=== PATIENT | male | born 1990 | race African-American/Black ===

== ENCOUNTER 2017-02-18 11:27 | Emergency (ER) | payer MEDICAID, OTHER ==
[2017-02-18] MEDS ORDERED: Albuterol 2.5 MG/3 ML NEB.SOL* (0.083%) INH ONE ×2 (12:27→13:14)
--- NOTE | 2017-02-18 12:45 | ED ---
Asthma - HPI Summary HPI Summary: Patient presents with wheezing. He has asthma and has had an URI for the last four days. He does not have a regular provider and does not have an inhaler. He denies CP, fever, chills, sore throat, or SEO. He has nasal and chest congestion with a cough. - History of Current Complaint Chief Complaint: EDAsthma Stated Complaint: ASTHMA ISSUE Time Seen by Provider: 02/18/17 11:47 Hx Obtained From: Patient Onset/Duration: Gradual Onset Timing: Constant Initial Severity: Moderate Current Severity: Moderate Pain Intensity: 0 Location/Character: Cough (Nonproductive) Alleviating Symptoms: Nothing Associated Signs and Symptoms: Positive: Shortness of Breath - Allergy/Home Medications Allergies/Adverse Reactions: Allergies Allergy/AdvReac Type Severity Reaction Status Date / Time Environmental Allergy Congestion Uncoded 03/03/16 10:55 PMH/Surg Hx/FS Hx/Imm Hx Endocrine/Hematology History: Denies: Hx Diabetes, Hx Thyroid Disease Cardiovascular History: Denies: Hx Hypertension Respiratory History: Reports: Hx Asthma Denies: Hx Chronic Obstructive Pulmonary Disease (COPD) GI History: Denies: Hx Ulcer - Immunization History Date of Tetanus Vaccine: UTD Date of Influenza Vaccine: no Infectious Disease History: No Infectious Disease History: Denies: Hx Hepatitis, Hx Human Immunodeficiency Virus (HIV), History Other Infectious Disease, Traveled Outside the [place] in Last 30 Days - Family History Known Family History: Positive: None - Social History Occupation: Employed Full-time Lives: With Family Alcohol Use: Occasionally Substance Use Type: Reports: None Smoking Status (MU): Former Smoker Type: Cigarettes Amount Used/How Often: 2 cigs per day Review of Systems Negative: Fever, Chills Positive: Nasal Discharge. Negative: Sore Throat Negative: Chest Pain Positive: Shortness Of Breath, Cough All Other Systems Reviewed And Are Negative: Yes Physical Exam Triage Information Reviewed: Yes Vital Signs On Initial Exam: Initial Vitals Temp Pulse Resp BP Pulse Ox 97.4 F 95 16 131/75 100 02/18/17 11:29 02/18/17 11:29 02/18/17 11:29 02/18/17 11:29 02/18/17 11:29 Vital Signs Reviewed: Yes Appearance: Positive: Well-Appearing, No Pain Distress, Well-Nourished Skin: Positive: Warm, Skin Color Reflects Adequate Perfusion, Dry, Soft Head/Face: Positive: Normal Head/Face Inspection Eyes: Positive: EOMI, STEFAN, Conjunctiva Clear ENT: Positive: Hearing grossly normal, Pharynx normal Neck: Positive: Supple, Nontender, No Lymphadenopathy Respiratory/Lung Sounds: Positive: Breath Sounds Present, Wheezes - upper and lower bilaterally. Negative: Decreased Breath Sounds, Subcutaneous Emphysema, Stridor, Tracheal Deviation, Unable to speak in full sentences, Fatigue Cardiovascular: Positive: RRR Musculoskeletal: Negative: Edema Left, Edema Right Neurological: Positive: Sensory/Motor Intact, Alert, Oriented to Person Place, Time, NV Bundle Intact Distally Psychiatric: Positive: Affect/Mood Appropriate AVPU Assessment: Alert - Aileen Coma Scale Coma Scale Total: 15 Diagnostics - Vital Signs Vital Signs Temp Pulse Resp BP Pulse Ox 02/18/17 11:44 97.4 F 95 16 131/75 100 02/18/17 11:29 97.4 F 95 16 131/75 100 - Laboratory Lab Statement: Any lab studies that have been ordered have been reviewed, and results considered in the medical decision making process. Re-Evaluation - Re-Evaluation Second Eval Re-Evaluation Time: 14:05 Change: Improved - continued improvement with second albuterol treatment Asthma Course/Dx - Diagnoses Differential Diagnosis/HQI/PQRI: Positive: Acute Asthma, Bronchitis, COPD Excerbation, Pneumonia, Reactive Airway Disease Provider Diagnoses: Asthma with acute exacerbation in adult Discharge - Discharge Plan Condition: Stable Disposition: HOME Prescriptions: Albuterol HFA INHALER* [Ventolin HFA Inhaler*] 2 puff INH Q4H PRN #1 mdi PRN Reason: wheezing Patient Education Materials: Wheezing (ED) Referrals: Luis Miguel Dave MD [Primary Care Provider] - Additional Instructions: Please use the inhaler to help decrease your symptoms. Use over the counter medication to help with your other symptoms. Call the number provided to establish care with a regular provider. Return to the emergency department if symptoms worsen.
[2017-02-18] MEDS ORDERED: Albuterol HFA INHALER* 8 gm MDI INH PRN (14:09)
[2017-02-18] MEDS ORDERED: Albuterol HFA INHALER* 8 gm MDI INH ONE (14:26)
[2017-02-18 14:32] VITALS: BP 150/67
== END 2017-02-18 14:35 | disposition home or self-care (01) ==
LOC: ED 11:27
DX: J45.901 Unspecified asthma with (acute) exacerbation (principal); R06.02 Shortness of breath; R05 Cough
CPT/HCPCS: 94640; 99282; A9270-GY

== ENCOUNTER 2019-03-20 19:34 | Emergency (ER) | payer OTHER ==
--- NOTE | 2019-03-20 19:39 | UC ---
Hand/Wrist HPI - HPI Summary HPI Summary: 28 yo male presents with left wrist injury. He tells me that about 30min [employer] he was chasing his young son when he tripped and landed on his left wrist. Has some abrasion to his wrist and pain. Pain worse with movement. Has not taken anything OTC for his pain. He is right handed. Denies numbness or tingling. States last tetanus was 2-3 years ago. - History Of Current Complaint Stated Complaint: LEFT WRIST INJURY Time Seen by Provider: 03/20/19 19:39 Hx Obtained From: Patient Onset/Duration: Sudden Onset Severity Initially: Moderate Severity Currently: Severe Pain Intensity: 9 Pain Scale Used: 0-10 Numeric - Allergies/Home Medications Allergies/Adverse Reactions: Allergies Allergy/AdvReac Type Severity Reaction Status Date / Time Environmental Allergy Congestion Uncoded 03/03/16 10:55 PMH/Surg Hx/FS Hx/Imm Hx Respiratory History: Asthma - Surgical History Surgical History: None - Family History Known Family History: Positive: None - Social History Lives: With Family Alcohol Use: Occasionally Substance Use Type: None Smoking Status (MU): Current Some Day Smoker Type: Cigarettes Amount Used/How Often: 2 cigs per day Review of Systems All Other Systems Reviewed And Are Negative: Yes Constitutional: Positive: Negative Skin: Positive: Other - Abrasions left wrist/arm Respiratory: Positive: Negative Cardiovascular: Positive: Negative Neurovascular: Positive: Negative Musculoskeletal: Positive: Other: - Left wrist pain Neurological: Positive: Negative Psychological: Positive: Negative Physical Exam - Summary Physical Exam Summary: GENERAL: NAD. WDWN. No pain distress. SKIN: Three superficial abrasions. One on the dorsal mid forearm. One on the dorsal left wrist. One on the ulnar aspect of the left hand. Dried blood. Clean wounds. CHEST: No accessory muscle use. Breathing comfortably and in no distress. CV: Pulses intact radial and ulnar. Cap refill <2seconds MSK: LEFT WRIST: Moderate TTP about entire wrist with mild edema. Mild TTP at mid dorsal forearm with dorsal bony angulation near mid radius. Decreased flexion due to pain. Unable to supinate due to pain. NTTP elbow. NEURO: Alert. Sensations intact hand and all fingers. PSYCH: Age appropriate behavior. Triage Information Reviewed: Yes Vital Signs: Vital Signs: Temp Pulse Resp BP Pulse Ox 99.7 F 96 18 128/75 97 03/20/19 19:48 03/20/19 19:48 03/20/19 19:48 03/20/19 19:48 03/20/19 19:48 Vital Signs Reviewed: Yes Hand/Wrist Course/Dx - Course Course Of Treatment: The wounds on his arm were irrigated with NS. XR: No radiologist reading after 1800, therefore wet read by myself is mid shaft radius fracture with dorsal and ulnar displacement. Call to Dr. Mckeon carbonation equipment tender Orthopedist at 1999. Return call around 2014 - she viewed the films and agrees with above. I discussed the case with her. She advises that this fracture will likely not be able to be reduced and will likely need surgery tonight and she is not comfortable performing the required operation - recommended pt be transferred to [facility] for further treatment and to obtain elbow XRs. XR elbow: Wet read as negative at the elbow. Pt drove here. Was given 800mg ibuprofen for his discomfort. Discussed the above with pt and he is agreeable to transfer. Spoke with [facility] transfer center Vee RN and pt to report to [facility] ED. Medicaid cab service was able to be contacted and will transport the pt to [facility] ED. He was placed in a sling for comfort and provided with a CD copy of his films from today. Left in stable condition via medicaid cab. - Differential Dx/Diagnosis Provider Diagnosis: Displaced fracture of shaft of radius Discharge - Sign-Out/Discharge Documenting (check all that apply): Patient Departure All imaging exams completed and their final reports reviewed: No - Discharge Plan Condition: Stable Disposition: TRANS HIGHER LVL OF CARE FAC Referrals: No Primary Care Phys,NOPCP [Primary Care Provider] - Additional Instructions: I spoke to our Orthopedic doctor carbonation equipment tender and they recommend that you go to [facility] for further treatment of your forearm fracture - Billing Disposition and Condition Condition: STABLE Disposition: Trans Higher Lvl of Care Fac
[2019-03-20] MEDS ORDERED: Tetan/Diph/Pertus SYR(Tdap)* 0.5 ML SYR(BOOSTRIX) use SYR IM ONE (19:44)
[2019-03-20 19:55] VITALS: BP 128/75
[2019-03-20] MEDS ORDERED: Ibuprofen TAB* 400 MG PO ONE (19:57)
--- NOTE | 2019-03-21 09:32 | UC ---
- Progress Note Progress Note: XR elbow: IMPRESSION: 1. LIMITED STUDY. 2. TRANSVERSE COMMINUTED DISPLACED ANGULATED FRACTURE OF THE MID DIAPHYSIS OF THE RADIUS. NO ADDITIONAL FRACTURE IS SEEN. XR: wrist/forearm: IMPRESSION: TRANSVERSE COMMINUTED DISPLACED ANGULATED FRACTURE OF THE MID DIAPHYSIS OF THE RADIUS. No change in plan of care Course/Dx - Diagnoses Provider Diagnoses: Displaced fracture of shaft of radius Discharge - Sign-Out/Discharge Documenting (check all that apply): Post-Discharge Follow Up All imaging exams completed and their final reports reviewed: Yes - Discharge Plan Condition: Stable Disposition: TRANS HIGHER LVL OF CARE FAC Referrals: No Primary Care Phys,NOPCP [Primary Care Provider] - Additional Instructions: I spoke to our Orthopedic doctor director of extension work and they recommend that you go to [facility] for further treatment of your forearm fracture - Billing Disposition and Condition Condition: STABLE Disposition: Trans Higher Lvl of Care Fac
== END 2019-03-20 20:53 | disposition short-term general hospital (02) ==
LOC: UCEAST 19:34
DX: S52.322A Displaced transverse fracture of shaft of left radius, initial encounter for closed fracture (principal); S60.812A Abrasion of left wrist, initial encounter; W01.0XXA Fall on same level from slipping, tripping and stumbling without subsequent striking against object, initial encounter; Y93.02 Activity, running; Y92.9 Unspecified place or not applicable; Z72.0 Tobacco use
CPT/HCPCS: 90715; 99213; A9270-GY; G0463

== ENCOUNTER 2019-09-21 10:54 | Emergency (ER) | payer OTHER ==
--- NOTE | 2019-09-21 11:59 | ED ---
Upper Extremity Pain - HPI Summary HPI Summary: Patient is a 28-year-old male who presents with 4-5 days of left upper extremity pain. Had ORIF in March at [facility]. States that this is the first time he has had pain since May. Pain is located throughout ventral aspect of left forearm and the left wrist. Describes pain as throbbing, worse at night. Has taken Ibuprofen, Tylenol, and applied ice with no relief. Denies numbness, tingling. Denies fever, chills. - History of Current Complaint Chief Complaint: EDExtremityUpper Stated Complaint: SHARP PAINS IN LEFT ARM/INJ IN MARCH PER PT Time Seen by Provider: 09/21/19 11:47 Hx Obtained From: Patient Onset/Duration: Started Days Ago Timing: Constant Severity Initially: Moderate Severity Currently: Moderate Pain Location: Forearm Character: Throbbing Aggravating Factor(s): Movement, Lifting, Flexion Alleviating Factor(s): Nothing Associated Signs & Symptoms: Negative: Swelling, Redness, Bruising Related History: Dominant Hand Right - Risk Factors Non-Orthopedic Risk Factor: Negative DVT Risk Factors: Negative Septic Arthritis Risk Factor: Negative Compartment Syndrome Risk Factors: Pain - Allergies/Home Medications Allergies/Adverse Reactions: Allergies Allergy/AdvReac Type Severity Reaction Status Date / Time No Known Allergies Allergy Verified 09/21/19 10:59 PMH/Surg Hx/FS Hx/Imm Hx Previously Healthy: Yes Endocrine/Hematology History: Denies: Hx Diabetes, Hx Thyroid Disease Cardiovascular History: Denies: Hx Hypertension Respiratory History: Reports: Hx Asthma Denies: Hx Chronic Obstructive Pulmonary Disease (COPD) GI History: Denies: Hx Ulcer - Immunization History Date of Tetanus Vaccine: unkown Date of Influenza Vaccine: no Hx Pertussis Vaccination: No Immunizations Up to Date: Yes Infectious Disease History: No Infectious Disease History: Denies: Hx Hepatitis, Hx Human Immunodeficiency Virus (HIV), History Other Infectious Disease, Traveled Outside the [place] in Last 30 Days - Family History Known Family History: Positive: None - Social History Occupation: Unemployed Lives: Alone Alcohol Use: Occasionally Hx Substance Use: No Substance Use Type: Reports: None Substance Use Comment - Amount & Last Used: occasional Hx Tobacco Use: Yes Smoking Status (MU): Current Some Day Smoker Type: Cigarettes Amount Used/How Often: 2 cigs per day Review of Systems Constitutional: Negative Negative: Fever, Chills Eyes: Negative ENT: Negative Cardiovascular: Negative Negative: Palpitations, Chest Pain Respiratory: Negative Negative: Shortness Of Breath, Cough Gastrointestinal: Negative Negative: Abdominal Pain, Nausea Positive: Other. Negative: Edema - L wrist/ventral forearm pain. Limited AROM due to pain. Skin: Negative Negative: Bruising Neurological: Negative Negative: Headache, Paresthesia, Numbness Psychological: Normal All Other Systems Reviewed And Are Negative: Yes Physical Exam Triage Information Reviewed: Yes Vital Signs On Initial Exam: Initial Vitals Temp Pulse Resp BP Pulse Ox 98.5 F 72 17 134/71 97 09/21/19 10:56 09/21/19 10:56 09/21/19 10:56 09/21/19 10:56 09/21/19 10:56 Vital Signs Reviewed: Yes Appearance: Positive: Well-Appearing, No Pain Distress, Well-Nourished Skin: Positive: Warm, Skin Color Reflects Adequate Perfusion, Dry Head/Face: Positive: Normal Head/Face Inspection Eyes: Positive: Normal, EOMI, Conjunctiva Clear ENT: Positive: Normal ENT inspection, Hearing grossly normal Neck: Positive: Supple Respiratory/Lung Sounds: Positive: Clear to Auscultation, Breath Sounds Present. Negative: Rales, Rhonchi, Wheezes Cardiovascular: Positive: Normal, RRR, S1, S2. Negative: Murmur, Rub Musculoskeletal: Negative: Strength/ROM Intact Neurological: Positive: Speech Normal Psychiatric: Positive: Patient Uncooperative for Exam AVPU Assessment: Alert Procedures - Sedation Patient Received Moderate/Deep Sedation with Procedure: No Diagnostics - Vital Signs Vital Signs Temp Pulse Resp BP Pulse Ox 09/21/19 10:56 98.5 F 72 17 134/71 97 - Laboratory Lab Statement: Any lab studies that have been ordered have been reviewed, and results considered in the medical decision making process. Course/Dx - Course Course Of Treatment: During his course of treatment the patient is evaluated for left forearm pain. He states he had a ORIF several months ago and is just now having pain for the first time. He denies any trauma or injury. He denies any weakness or decreased hair assistant strength. Denies numbness, tingling, ecchymosis or erythema. He states he has not been taking any medication for improvement. Xray obtained which shows no acute findings. Good hair assistant strength throughout. 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 It was discussed with the patient, he would likely need to get this note from his PCP. However, I am willing to give him a note for the next few days that he will be "unable to lift weights, or exercise with the arm." To this he becomes very upset and leaves without receiving discharge paperwork. Discharge paperwork however, was voiced clearly to the patient prior to patient leaving. - Diagnoses Differential Diagnosis/HQI/PQRI: Positive: Other - request for note, doctors note, arm pain, ORIF complications Provider Diagnoses: Arm pain Discharge ED - Sign-Out/Discharge Documenting (check all that apply): Patient Departure - Discharge Plan Condition: Stable Disposition: HOME Forms: *Gen. Provider Communication Referrals: No Primary Care Phys,NOPCP [Primary Care Provider] - - Billing Disposition and Condition Condition: STABLE Disposition: Home
[2019-09-21 14:12] VITALS: BP 0/0
== END 2019-09-21 13:55 | disposition home or self-care (01) ==
LOC: ED 10:54
DX: M79.602 Pain in left arm (principal); F17.210 Nicotine dependence, cigarettes, uncomplicated
CPT/HCPCS: 99281